=== PATIENT | male | born 1995 | race Caucasian/White ===

== ENCOUNTER 2017-02-26 22:21 | Emergency (ER) | payer OTHER ==
--- NOTE | 2017-02-26 22:36 | ED NURSING NOTES ---
Clinical Report - Nurses [facility] [address] [place] [address] 02/26/2017 22:25 Patient: VEENA HENDERSON TRIAGE Acuity: LEVEL 4. Chief Complaint: BOIL. Alert. No acute distress. --22:36 Rosie Schmidt R.N. 22:30 02/26/17. BP: 137/77. HR: 94. RR: 18. O2 saturation: 96%. Temp: 98.2 F (oral). Pain level now: 0/10. --22:36 Rosie Schmidt R.N. Weight: 127 kg stated. Height/Length: 74 inches Per Patient. BMI: 36. --22:34 Rosie Schmidt R.N. Medications None. --22:32 Rosie Schmidt R.N. Medication/allergy information source: the patient. --22:36 Rosie Schmidt R.N. Allergies No Known Drug Allergy. --22:32 Rosie Schmidt R.N. History Arrived by private vehicle. Historian: patient. Accompanied by father. Primary physician (Heriberto). Reported as (buttock crack). This started yesterday. 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 PAST MEDICAL HX: Immunizations: up-to-date. SOCIAL HX: Never smoker. Occasional alcohol use. No drug use. FALL RISK ASSESSMENT: Fall risk assessment completed. No fall risk identified. NUTRITIONAL RISK ASSESSMENT: The nutritional risk assessment revealed no deficiencies. FUNCTIONAL ASSESSMENT: Functional assessment: no impairments noted. LEARNING NEEDS ASSESSMENT: The learning needs assessment revealed no barriers. SKIN INTEGRITY ASSESSMENT: Skin integrity risk assessment completed. No skin integrity risk identified. --22:36 Rosie Schmidt R.N. Assessment GENERAL / NEURO / PSYCH: Alert. Oriented X 4. Appears in no acute distress. Patient appears calm and cooperative. RESPIRATORY: Respirations not labored. CVS: Capillary refill less than 2 seconds. GI / : Abdomen soft and nontender. SKIN: Mucous membranes are pink. Skin is warm and dry. --22:36 Rosie Schmidt R.N. Interventions ID band on patient. To treatment room. --22:36 Rosie Schmidt R.N. PHYSICAL ASSESSMENT Ambulatory to room. GENERAL / NEURO / PSYCH: Alert. The patient does not appear to be in acute distress. Oriented X 4. HEENT: Pupils equal, round and reactive to light. Mucous membranes are pink. RESPIRATORY: Respirations not labored. CVS: Capillary refill less than 2 seconds. Pulses within normal limits. GI / : Abdomen nontender. SKIN: Skin is warm, dry and non-tender. Normal skin turgor. --22:37 Rosie Schmidt R.N. NURSING PROGRESS NOTES Patient gowned. Two patient identifiers checked. Bed placed in lowest position. Brakes of bed on. Patient ready for evaluation- chart flagged and PA notified. --22:37 Rosie Schmidt R.N. 22:42 02/26/2017 Bactrim DS (Sulfamethoxazole-TMP DS) PO 2 tab given. Allergies verified and confirmed 5 rights. --22:57 Rosie Schmidt R.N. 22:43 02/26/2017 Keflex (Cephalexin) PO 500 mg given. Allergies verified and confirmed 5 rights. --22:58 Rosie Schmidt R.N. DISPOSITION / DISCHARGE Departure time: 22:50 Feb 26 2017. Condition at departure: improved and stable. No learning barriers present. Discharge instructions provided and reviewed with the patient. Reviewed medication(s) side effects, precautions, dosing and course information. Prescription(s) given to the patient. Patient verbalized understanding. Written instructions provided in [place]. The patient was discharged by the physician insurance administrative assistant. He was discharged home and accompanied by parent. He left the Emergency Department ambulatory and via private vehicle. Parent driving. --22:57 Rosie Schmidt R.N. Locked/Released at 03/04/2017 12:51 by Rosie Schmidt R.N.
--- NOTE | 2017-02-26 22:36 | ED CLINICAL REPORT ---
Clinical Report - Physicians/Mid Levels [facility] [address] [place] [address] 02/26/2017 22:25 Patient: VEENA HENDERSON Time Seen: 22:46 Semaj 11 2016. Arrived- By private vehicle. Historian- patient. HISTORY OF PRESENT ILLNESS Chief Complaint: SKIN RASH, LESION, BOIL and TENDER AREA. Is still present. It has been located on the trunk (sacrum). (pain swelling for 24 hours, patient with some sangenous drainage. No h/o trauma. NO h/o similar. NO fevers. NO h/o similar.). REVIEW OF SYSTEMS No fever, difficulty breathing, lump in throat, eye irritation or abdominal pain. No diarrhea or difficulty with urination. All systems otherwise negative, except as recorded above. PAST HISTORY unsure of tdap. SOCIAL HISTORY Never smoker. No alcohol use or drug use. ADDITIONAL NOTES The nursing notes have been reviewed. PHYSICAL EXAM Vital Signs: 02/26/2017 22:30 BP: 137/77. HR: 94. RR: 18. O2 saturation: 96%. Temp: 98.2 F. Pain level now: 0/10. Appearance: Alert. ENT: Ears normal. Nose normal. Neck: Neck supple. CVS: Normal heart rate and rhythm. Heart sounds normal. Respiratory: No respiratory distress. Breath sounds normal. Skin: Skin dry. Tender indurated area. (puncture wound at middle of sacrum with mild surrounding erythema, no fluctulance, minimally tender). Neuro: Oriented X 3. PROGRESS AND PROCEDURES Course of Care: small puncture wound, questionable early pilonidal cyst that self interrupted, this time patient does not need any packing or any further dressings to this area. Afebrile. Non tender area. NO other noted lesions. Patient is stable. The patient's symptoms are unchanged. Patient/family counseled. Disposition: Discharged. Condition: good. CLINICAL IMPRESSION Pilonidal cyst with abscess. Single superficial abscess. INSTRUCTIONS (sitz bath or warm packs repeat wound exam in 2-3 days with PCP okay). Prescription Medications: Bactrim DS 800 mg / 160 mg: take 1 tablet orally every 12 hours for 10 days. No refill. Substitution is permissible. Keflex 500 mg: take 1 capsule orally every 8 hours for 10 days. No refill. Substitution is permissible. Understanding of the discharge instructions verbalized by patient. (Electronically signed by Chloé Ponce P.A.-C 02/26/2017 22:53)
--- NOTE | 2017-02-26 22:36 | ED NURSING NOTES ---
Clinical Report - Nurses [facility] [address] [place] [address] 02/26/2017 22:25 Patient: VEENA HENDERSON TRIAGE Acuity: LEVEL 4. Chief Complaint: BOIL. Alert. No acute distress. --22:36 Rosie Schmidt R.N. 22:30 02/26/17. BP: 137/77. HR: 94. RR: 18. O2 saturation: 96%. Temp: 98.2 F (oral). Pain level now: 0/10. --22:36 Rosie Schmidt R.N. Weight: 127 kg stated. Height/Length: 74 inches Per Patient. BMI: 36. --22:34 Rosie Schmidt R.N. Medications None. --22:32 Rosie Schmidt R.N. Medication/allergy information source: the patient. --22:36 Rosie Schmidt R.N. Allergies No Known Drug Allergy. --22:32 Rosie Schmidt R.N. History Arrived by private vehicle. Historian: patient. Accompanied by father. Primary physician (Heriberto). Reported as (buttock crack). This started yesterday. 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 PAST MEDICAL HX: Immunizations: up-to-date. SOCIAL HX: Never smoker. Occasional alcohol use. No drug use. FALL RISK ASSESSMENT: Fall risk assessment completed. No fall risk identified. NUTRITIONAL RISK ASSESSMENT: The nutritional risk assessment revealed no deficiencies. FUNCTIONAL ASSESSMENT: Functional assessment: no impairments noted. LEARNING NEEDS ASSESSMENT: The learning needs assessment revealed no barriers. SKIN INTEGRITY ASSESSMENT: Skin integrity risk assessment completed. No skin integrity risk identified. --22:36 Rosie Schmidt R.N. Assessment GENERAL / NEURO / PSYCH: Alert. Oriented X 4. Appears in no acute distress. Patient appears calm and cooperative. RESPIRATORY: Respirations not labored. CVS: Capillary refill less than 2 seconds. GI / : Abdomen soft and nontender. SKIN: Mucous membranes are pink. Skin is warm and dry. --22:36 Rosie Schmidt R.N. Interventions ID band on patient. To treatment room. --22:36 Rosie Schmidt R.N. PHYSICAL ASSESSMENT Ambulatory to room. GENERAL / NEURO / PSYCH: Alert. The patient does not appear to be in acute distress. Oriented X 4. HEENT: Pupils equal, round and reactive to light. Mucous membranes are pink. RESPIRATORY: Respirations not labored. CVS: Capillary refill less than 2 seconds. Pulses within normal limits. GI / : Abdomen nontender. SKIN: Skin is warm, dry and non-tender. Normal skin turgor. --22:37 Rosie Schmidt R.N. NURSING PROGRESS NOTES Patient gowned. Two patient identifiers checked. Bed placed in lowest position. Brakes of bed on. Patient ready for evaluation- chart flagged and PA notified. --22:37 Rosie Schmidt R.N. 22:42 02/26/2017 Bactrim DS (Sulfamethoxazole-TMP DS) PO 2 tab given. Allergies verified and confirmed 5 rights. --22:57 Rosie Schmidt R.N. 22:43 02/26/2017 Keflex (Cephalexin) PO 500 mg given. Allergies verified and confirmed 5 rights. --22:58 Rosie Schmidt R.N. DISPOSITION / DISCHARGE Departure time: 22:50 Feb 26 2017. Condition at departure: improved and stable. No learning barriers present. Discharge instructions provided and reviewed with the patient. Reviewed medication(s) side effects, precautions, dosing and course information. Prescription(s) given to the patient. Patient verbalized understanding. Written instructions provided in [place]. The patient was discharged by the physician commercial assistant. He was discharged home and accompanied by parent. He left the Emergency Department ambulatory and via private vehicle. Parent driving. --22:57 Rosie Schmidt R.N. Locked/Released at 03/04/2017 12:51 by Rosie Schmidt R.N.
--- NOTE | 2017-02-26 22:36 | ED ORDER SUMMARY ---
..... Patient: VEENA HENDERSON OrderSheet [facility] VisitID: [id number] [address] [place] [address] 22y, M Registration Date/Time: 02/26/2017 ORDER SHEET Weight: 127.0 kg (stated) Allergies: No Known Drug Allergy GENERAL ORDERS: MEDICATION ORDERS: Bactrim DS PO (Tablet 800-160 mg) 2 tabs (NOW) (22:34 02/26/2017 Fran P.A.-C) (Ack 22:39 MWinterer R.N.) (22:57 MWinterer R.N.) Keflex PO 500 mg (NOW) (22:34 02/26/2017 Fran P.A.-C) (Ack 22:39 MWinterer R.N.) (22:58 MWinterer R.N.) IV FLUIDS: ORDER SHEET NOTES: [Electronically signed by Chloé Ponce PWandaAWanda-Giovany (22:53 02/26/2017)] [Electronically signed by Rosie Schmidt R.N. (12:51 03/04/2017)] [Electronically locked/signed by Rosie Schmidt R.N. (12:51 03/04/2017)]
--- NOTE | 2017-02-26 22:36 | ED ORDER SUMMARY ---
..... Patient: VEENA HENDERSON OrderSheet [facility] VisitID: [id number] [address] [place] [address] 22y, M Registration Date/Time: 02/26/2017 ORDER SHEET Weight: 127.0 kg (stated) Allergies: No Known Drug Allergy GENERAL ORDERS: MEDICATION ORDERS: Bactrim DS PO (Tablet 800-160 mg) 2 tabs (NOW) (22:34 02/26/2017 Fran P.A.-C) (Ack 22:39 MWinterer R.N.) (22:57 MWinterer R.N.) Keflex PO 500 mg (NOW) (22:34 02/26/2017 Fran P.A.-C) (Ack 22:39 MWinterer R.N.) (22:58 MWinterer R.N.) IV FLUIDS: ORDER SHEET NOTES: [Electronically signed by Chloé Ponce PWandaAWanda-Giovany (22:53 02/26/2017)] [Electronically signed by Rosie Schmidt R.N. (12:51 03/04/2017)] [Electronically locked/signed by Rosie Schmidt R.N. (12:51 03/04/2017)]
--- NOTE | 2017-02-26 22:36 | ED CLINICAL REPORT ---
Clinical Report - Physicians/Mid Levels [facility] [address] [place] [address] 02/26/2017 22:25 Patient: VEENA HENDERSON Time Seen: 22:46 Semaj 11 2016. Arrived- By private vehicle. Historian- patient. HISTORY OF PRESENT ILLNESS Chief Complaint: SKIN RASH, LESION, BOIL and TENDER AREA. Is still present. It has been located on the trunk (sacrum). (pain swelling for 24 hours, patient with some sangenous drainage. No h/o trauma. NO h/o similar. NO fevers. NO h/o similar.). REVIEW OF SYSTEMS No fever, difficulty breathing, lump in throat, eye irritation or abdominal pain. No diarrhea or difficulty with urination. All systems otherwise negative, except as recorded above. PAST HISTORY unsure of tdap. SOCIAL HISTORY Never smoker. No alcohol use or drug use. ADDITIONAL NOTES The nursing notes have been reviewed. PHYSICAL EXAM Vital Signs: 02/26/2017 22:30 BP: 137/77. HR: 94. RR: 18. O2 saturation: 96%. Temp: 98.2 F. Pain level now: 0/10. Appearance: Alert. ENT: Ears normal. Nose normal. Neck: Neck supple. CVS: Normal heart rate and rhythm. Heart sounds normal. Respiratory: No respiratory distress. Breath sounds normal. Skin: Skin dry. Tender indurated area. (puncture wound at middle of sacrum with mild surrounding erythema, no fluctulance, minimally tender). Neuro: Oriented X 3. PROGRESS AND PROCEDURES Course of Care: small puncture wound, questionable early pilonidal cyst that self interrupted, this time patient does not need any packing or any further dressings to this area. Afebrile. Non tender area. NO other noted lesions. Patient is stable. The patient's symptoms are unchanged. Patient/family counseled. Disposition: Discharged. Condition: good. CLINICAL IMPRESSION Pilonidal cyst with abscess. Single superficial abscess. INSTRUCTIONS (sitz bath or warm packs repeat wound exam in 2-3 days with PCP okay). Prescription Medications: Bactrim DS 800 mg / 160 mg: take 1 tablet orally every 12 hours for 10 days. No refill. Substitution is permissible. Keflex 500 mg: take 1 capsule orally every 8 hours for 10 days. No refill. Substitution is permissible. Understanding of the discharge instructions verbalized by patient. (Electronically signed by Chloé Ponce P.A.-C 02/26/2017 22:53)
--- NOTE | 2017-03-04 12:52 | ED DISCHARGE INSTRUCTIONS ---
Patient: VEENA HENDERSON General Instructions [facility] VisitID: [id number] [place] [address] 22y, M Registration Date/Time: 02/26/2017 Pilonidal cyst with abscess. Single superficial abscess. INSTRUCTIONS (sitz bath or warm packs repeat wound exam in 2-3 days with PCP remy). Prescription Medications: Bactrim DS 800 mg / 160 mg: take 1 tablet orally every 12 hours for 10 days. No refill. Substitution is permissible. Keflex 500 mg: take 1 capsule orally every 8 hours for 10 days. No refill. Substitution is permissible. Understanding of the discharge instructions verbalized by patient. ADDITIONAL INFORMATION Abscess (Antibiotic Treatment Only) An abscess (sometimes called a boil) occurs when bacteria get trapped under the skin and begin to grow. Pus forms inside the abscess as the body responds to the bacteria. An abscess can occur with an insect bite, ingrown hair, blocked oil gland, pimple, cyst, or puncture wound. In the early stages, redness and tenderness are the only symptoms. Sometimes, this stage can be treated with antibiotics alone. If the abscess does not respond to antibiotic treatment, it will need to be drained with a small cut, under local anesthesia. Home care The following will help you care for your abscess at home: Soak the wound in hot water or apply hot packs (small towel soaked in hot water) to the area for 20 minutes at a time. Do this three to four times a day. Apply antibiotic cream or ointment onto the skin 3-4 times a day, unless something else was prescribed. Some ointments include an antibiotic plus a local pain reliever. If your doctor prescribed antibiotics, do not stop taking this medication until you have finished the prescribed course or the doctor tells you to stop. You may use an [id number] pain medication to control pain, unless another pain medicine was prescribed. If you have chronic liver or kidney disease or ever had a stomach ulcer or GI bleeding, talk with your doctor before using these any of these. Follow-up care Follow up with your health care provider as advised by our staff. Look at your wound each day for the signs of worsening infection listed below. When to seek medical care Get prompt medical attention if any of the following occur: An increase in redness or swelling Red streaks in the skin leading away from the abscess An increase in local pain or swelling Fever of 100.4F (38C) or higher, or as directed by your health care provider Pus or fluid coming from the abscess Pilonidal Cyst, Infected (Antibiotic Treatment) A pilonidal cyst is an enlarged hair follicle on the sacrum near the tail bone. It is present at and may look like a small dimple. It can fill with skin oils, hair, and skin cells. Because it often has an opening to the surface, it may become infected with normal skin bacteria (staph). If the infection is limited, it can be treated with antibiotics alone. If the infection is more severe, it will need to be drained with a small incision under local anesthesia. Home care The following guidelines will help you care for you wound at home: Sit in a tub filled with about 6 inches of very warm water. Allow the water to run in order to keep it hot for a total of 10 to 15 minutes. Repeat this three times a day until pain is relieved. Apply topical antibiotic cream or ointment. Some antibiotic ointments contain a pain reliever that will be helpful. Take oral antibiotics as prescribed, until finished. You may use acetaminophen or ibuprofen to control pain, unless another medicine was prescribed.If you have chronic liver or kidney disease or ever had a stomach ulcer or GI bleeding, talk with your doctor before using these medicines. Preventing future infections Once this infection has healed, observe the following to reduce the risk of future infections: Keep the area of the cyst clean by bathing or showering daily. Avoid tight-fitting clothing to minimize perspiration and irritation of the skin. Recurrent pilonidal cysts may be completely removed by surgery, but this can only be done at a time when there is no infection. Ask your doctor for more information. Be alert for signs of infection listed below so that treatment may be started early. Follow-up care Follow up with your doctor as advised by our staff. Check your wound every day for the signs listed below. When to seek medical care Get prompt medical attention if any of the following occur: Pus coming from the cyst Increasing local pain, redness or swelling Fever over 100.4F (38.0C) for more than two days Cephalexin Monohydrate Oral tablet What is this medicine? CEPHALEXIN (sef a CANDY in) is a cephalosporin antibiotic. It is used to treat certain kinds of bacterial infections It will not work for colds, flu, or other viral infections. How should I use this medicine? Take this medicine by mouth with a full glass of water. Follow the directions on the prescription label. This medicine can be taken with or without food. Take your medicine at regular intervals. Do not take your medicine more often than directed. Take all of your medicine as directed even if you think you are better. Do not skip doses or stop your medicine early. Talk to your medical coding auditor regarding the use of this medicine in children. While this drug may be prescribed for selected conditions, precautions do apply. What side effects may I notice from receiving this medicine? Side effects that you should report to your doctor or health respite care provider as soon as possible: allergic reactions like skin rash, itching or hives, swelling of the face, lips, or tongue breathing problems pain or trouble passing urine redness, blistering, peeling or loosening of the skin, including inside the mouth severe or watery diarrhea unusually weak or tired yellowing of the eyes, skin Side effects that usually do not require medical attention (report to your doctor or health respite care provider if they continue or are bothersome): gas or heartburn genital or anal irritation headache joint or muscle pain nausea, vomiting What may interact with this medicine? probenecid some other antibiotics What if I miss a dose? If you miss a dose, take it as soon as you can. If it is almost time for your next dose, take only that dose. Do not take double or extra doses. There should be at least 4 to 6 hours between doses. Where should I keep my medicine? Keep out of the reach of children. Store at room temperature between 59 and 86 degrees F (15 and 30 degrees C). Throw away any unused medicine after the expiration date. What should I tell my health care provider before I take this medicine? They need to know if you have any of these conditions: kidney disease stomach or intestine problems, especially colitis an unusual or allergic reaction to cephalexin, other cephalosporins, penicillins, other antibiotics, medicines, foods, dyes or preservatives or trying to get breast-feeding What should I watch for while using this medicine? Tell your doctor or health respite care provider if your symptoms do not begin to improve in a few days. Do not treat diarrhea with over the counter products. Contact your doctor if you have diarrhea that lasts more than 2 days or if it is severe and watery. If you have diabetes, you may get a false-positive result for sugar in your urine. Check with your doctor or health respite care provider. You have been given the following additional information: Abscess, Antiobiotic Treatment Only Pilonidal Cyst, Infected (Abx Only) Cephalexin Monohydrate Oral tablet (Electronically signed by Chloé Ponce P.A.-C 02/26/2017 22:53)
--- NOTE | 2017-03-04 12:52 | ED MED RECONCILIATION SUMMARY ---
Patient: VEENA HENDERSON Medication Reconciliation Report [facility] VisitID: [id number] [address] [place] [address] 22y, M Registration Date/Time: 02/26/2017 Weight: 127.0 kg Height/Length: 74 in. BMI: 36.0 ALLERGIES: No Known Drug Allergy The patient's Home Medications are listed below: NONE. The source(s) of the original Home Medication information: patient The following Medications were given to the patient in the Emergency Department: Bactrim DS [PO] PO 2 tab, administered: 02/26/2017 10:42:00 PM Keflex [PO] PO 500 mg, administered: 02/26/2017 10:43:00 PM The following Medications were prescribed to the patient: Bactrim DS 800 mg / 160 mg: take 1 tablet orally every 12 hours for 10 days. No refill. Substitution is permissible. -- Chloé Ponce P.A.-Giovany Keflex 500 mg: take 1 capsule orally every 8 hours for 10 days. No refill. Substitution is permissible. -- Chloé Ponce, P.A.-C
--- NOTE | 2017-03-04 12:52 | ED MAR SUMMARY ---
..... Medication Administration Record [facility] [address] [place] [address] Patient: VEENA HENDERSON Visit ID: [id number] 22y, M Weight: 127.0 kg Height/Length: 74 in BMI: 36 ALLERGIES: No Known Drug Allergy Given 22:42 02/26/2017 Rosie Schmidt, RWandaN. Medication Administered: BACTRIM DS [PO] (SULFAMETHOXAZOLE-TMP DS), Dose: 2 tab PO. Medication Ordered: Bactrim DS PO (Tablet 800-160 mg) 2 tabs (NOW). Given 22:43 02/26/2017 Rosie Schmidt, RWandaN. Medication Administered: KEFLEX [PO] (CEPHALEXIN), Dose: 500 mg PO. Medication Ordered: Keflex PO 500 mg (NOW).
--- NOTE | 2017-03-04 12:52 | ED DISCHARGE INSTRUCTIONS ---
Patient: VEENA HENDERSON General Instructions [facility] VisitID: [id number] [place] [address] 22y, M Registration Date/Time: 02/26/2017 Pilonidal cyst with abscess. Single superficial abscess. INSTRUCTIONS (sitz bath or warm packs repeat wound exam in 2-3 days with PCP remy). Prescription Medications: Bactrim DS 800 mg / 160 mg: take 1 tablet orally every 12 hours for 10 days. No refill. Substitution is permissible. Keflex 500 mg: take 1 capsule orally every 8 hours for 10 days. No refill. Substitution is permissible. Understanding of the discharge instructions verbalized by patient. ADDITIONAL INFORMATION Abscess (Antibiotic Treatment Only) An abscess (sometimes called a boil) occurs when bacteria get trapped under the skin and begin to grow. Pus forms inside the abscess as the body responds to the bacteria. An abscess can occur with an insect bite, ingrown hair, blocked oil gland, pimple, cyst, or puncture wound. In the early stages, redness and tenderness are the only symptoms. Sometimes, this stage can be treated with antibiotics alone. If the abscess does not respond to antibiotic treatment, it will need to be drained with a small cut, under local anesthesia. Home care The following will help you care for your abscess at home: Soak the wound in hot water or apply hot packs (small towel soaked in hot water) to the area for 20 minutes at a time. Do this three to four times a day. Apply antibiotic cream or ointment onto the skin 3-4 times a day, unless something else was prescribed. Some ointments include an antibiotic plus a local pain reliever. If your doctor prescribed antibiotics, do not stop taking this medication until you have finished the prescribed course or the doctor tells you to stop. You may use an [id number] pain medication to control pain, unless another pain medicine was prescribed. If you have chronic liver or kidney disease or ever had a stomach ulcer or GI bleeding, talk with your doctor before using these any of these. Follow-up care Follow up with your health care provider as advised by our staff. Look at your wound each day for the signs of worsening infection listed below. When to seek medical care Get prompt medical attention if any of the following occur: An increase in redness or swelling Red streaks in the skin leading away from the abscess An increase in local pain or swelling Fever of 100.4F (38C) or higher, or as directed by your health care provider Pus or fluid coming from the abscess Pilonidal Cyst, Infected (Antibiotic Treatment) A pilonidal cyst is an enlarged hair follicle on the sacrum near the tail bone. It is present at and may look like a small dimple. It can fill with skin oils, hair, and skin cells. Because it often has an opening to the surface, it may become infected with normal skin bacteria (staph). If the infection is limited, it can be treated with antibiotics alone. If the infection is more severe, it will need to be drained with a small incision under local anesthesia. Home care The following guidelines will help you care for you wound at home: Sit in a tub filled with about 6 inches of very warm water. Allow the water to run in order to keep it hot for a total of 10 to 15 minutes. Repeat this three times a day until pain is relieved. Apply topical antibiotic cream or ointment. Some antibiotic ointments contain a pain reliever that will be helpful. Take oral antibiotics as prescribed, until finished. You may use acetaminophen or ibuprofen to control pain, unless another medicine was prescribed.If you have chronic liver or kidney disease or ever had a stomach ulcer or GI bleeding, talk with your doctor before using these medicines. Preventing future infections Once this infection has healed, observe the following to reduce the risk of future infections: Keep the area of the cyst clean by bathing or showering daily. Avoid tight-fitting clothing to minimize perspiration and irritation of the skin. Recurrent pilonidal cysts may be completely removed by surgery, but this can only be done at a time when there is no infection. Ask your doctor for more information. Be alert for signs of infection listed below so that treatment may be started early. Follow-up care Follow up with your doctor as advised by our staff. Check your wound every day for the signs listed below. When to seek medical care Get prompt medical attention if any of the following occur: Pus coming from the cyst Increasing local pain, redness or swelling Fever over 100.4F (38.0C) for more than two days Cephalexin Monohydrate Oral tablet What is this medicine? CEPHALEXIN (sef a CANDY in) is a cephalosporin antibiotic. It is used to treat certain kinds of bacterial infections It will not work for colds, flu, or other viral infections. How should I use this medicine? Take this medicine by mouth with a full glass of water. Follow the directions on the prescription label. This medicine can be taken with or without food. Take your medicine at regular intervals. Do not take your medicine more often than directed. Take all of your medicine as directed even if you think you are better. Do not skip doses or stop your medicine early. Talk to your party director regarding the use of this medicine in children. While this drug may be prescribed for selected conditions, precautions do apply. What side effects may I notice from receiving this medicine? Side effects that you should report to your doctor or health assistant child care teacher as soon as possible: allergic reactions like skin rash, itching or hives, swelling of the face, lips, or tongue breathing problems pain or trouble passing urine redness, blistering, peeling or loosening of the skin, including inside the mouth severe or watery diarrhea unusually weak or tired yellowing of the eyes, skin Side effects that usually do not require medical attention (report to your doctor or health assistant child care teacher if they continue or are bothersome): gas or heartburn genital or anal irritation headache joint or muscle pain nausea, vomiting What may interact with this medicine? probenecid some other antibiotics What if I miss a dose? If you miss a dose, take it as soon as you can. If it is almost time for your next dose, take only that dose. Do not take double or extra doses. There should be at least 4 to 6 hours between doses. Where should I keep my medicine? Keep out of the reach of children. Store at room temperature between 59 and 86 degrees F (15 and 30 degrees C). Throw away any unused medicine after the expiration date. What should I tell my health care provider before I take this medicine? They need to know if you have any of these conditions: kidney disease stomach or intestine problems, especially colitis an unusual or allergic reaction to cephalexin, other cephalosporins, penicillins, other antibiotics, medicines, foods, dyes or preservatives or trying to get breast-feeding What should I watch for while using this medicine? Tell your doctor or health assistant child care teacher if your symptoms do not begin to improve in a few days. Do not treat diarrhea with over the counter products. Contact your doctor if you have diarrhea that lasts more than 2 days or if it is severe and watery. If you have diabetes, you may get a false-positive result for sugar in your urine. Check with your doctor or health assistant child care teacher. You have been given the following additional information: Abscess, Antiobiotic Treatment Only Pilonidal Cyst, Infected (Abx Only) Cephalexin Monohydrate Oral tablet (Electronically signed by Chloé Ponce P.A.-C 02/26/2017 22:53)
--- NOTE | 2017-03-04 12:52 | ED MAR SUMMARY ---
..... Medication Administration Record [facility] [address] [place] [address] Patient: VEENA HENDERSON Visit ID: [id number] 22y, M Weight: 127.0 kg Height/Length: 74 in BMI: 36 ALLERGIES: No Known Drug Allergy Given 22:42 02/26/2017 Rosie Schmidt, RWandaN. Medication Administered: BACTRIM DS [PO] (SULFAMETHOXAZOLE-TMP DS), Dose: 2 tab PO. Medication Ordered: Bactrim DS PO (Tablet 800-160 mg) 2 tabs (NOW). Given 22:43 02/26/2017 Rosie Schmidt, RWandaN. Medication Administered: KEFLEX [PO] (CEPHALEXIN), Dose: 500 mg PO. Medication Ordered: Keflex PO 500 mg (NOW).
--- NOTE | 2017-03-04 12:52 | ED MED RECONCILIATION SUMMARY ---
Patient: VEENA HENDERSON Medication Reconciliation Report [facility] VisitID: [id number] [address] [place] [address] 22y, M Registration Date/Time: 02/26/2017 Weight: 127.0 kg Height/Length: 74 in. BMI: 36.0 ALLERGIES: No Known Drug Allergy The patient's Home Medications are listed below: NONE. The source(s) of the original Home Medication information: patient The following Medications were given to the patient in the Emergency Department: Bactrim DS [PO] PO 2 tab, administered: 02/26/2017 10:42:00 PM Keflex [PO] PO 500 mg, administered: 02/26/2017 10:43:00 PM The following Medications were prescribed to the patient: Bactrim DS 800 mg / 160 mg: take 1 tablet orally every 12 hours for 10 days. No refill. Substitution is permissible. -- Chloé Ponce P.A.-Giovany Keflex 500 mg: take 1 capsule orally every 8 hours for 10 days. No refill. Substitution is permissible. -- Chloé Ponce, P.A.-C
== END 2017-02-26 22:50 | disposition home or self-care (01) ==
LOC: ED SRH 22:21
DX: L05.01 Pilonidal cyst with abscess (principal)